=== PATIENT | female | born 1995 | race Caucasian/White ===

== ENCOUNTER → 2019-08-11 | Day surgery (SDC) | payer BC ==
[~2019-08-11] MED LIST: hydrALAZINE 20 MG/ML VIAL SLOW IVP PRN
[2019-08-11 05:08] VITALS: BP 116/73; TEMP 99; BMI 32.2
[2019-08-11 05:44] LABS: Amnisure Test No Membranes Rupture (No Rupture)
[2019-08-11 05:45] LABS: Amnisure Internal Control QC ACCEPTABLE (ACCEPTABLE)
[2019-08-11 05:58] LABS: Amphetamine Detected (NotDetected); Barbiturates Screen Not Detected (NotDetected); Benzodiazepine Screen Not Detected (NotDetected); Cocaine Metabolite Screen Not Detected (NotDetected); Medtox Control Line Valid? VALID (VALID); Medtox Reader # READER 4; Methadone Not Detected (NotDetected); Methamphetamine Detected (NotDetected); Opiate Screen Not Detected (NotDetected); Oxycodone Screen Not Detected (NotDetected); Phencyclidine (PCP) Not Detected (NotDetected); THC/Cannabinoid Screen Not Detected (NotDetected); Tricyclic Screen Not Detected (NotDetected)
--- NOTE | 2019-08-11 06:35 | PDOC.LDHP ---
Labor and Delivery H&P Chief complaint: contractions, loss of fluid HPI: 23 y/o at 35w0d presents with small amount of leaking around noon with consistent leaking throughout the day. She thought she "peed" herself. Also started having ctx q 10-15 minutes last night. Denies VB or decreased FM. Of note, also reportedly took her brother's Adderall today. ROS neg for HEENT, cv, pulm, gi, gu, neuro, psych, skin, musculoskeletal or consitutional symptoms other than mentioned above. OB Care: Dr. Ibanez OB History Details: 2 prior term SVDs 3 prior SABs Current complications: none Past Medical History: Denies Current medications: pre-aditya vitamins Previous surgical history: none Allergies/Adverse Reactions: Allergies Allergy/AdvReac Type Severity Reaction Status Date / Time No Known Allergies Allergy Verified 08/11/19 04:56 Social history: none - Physical Exam Vital signs reviewed and normal: yes General: NAD, resting Lungs: nonlabored breathing Abdomen: gravid Extremeties: no edema FHT: category 1 (140s, mod variability, + accels, no decels) [place] contractions every: occasional - Vaginal Exam cm dilated: 0 Effacement: 0% Station: -3 - Assessment 23 y/o at 35w0d with no e/o SROM or active labor. status reassuring with reactive NST. UDS + for meth and amphetamines. VP3 pending. - Plan -: D/c home with precautions. Advised to keep all appointments. Will call with VP3 results if treatment is needed.
== END ==
LOC: L&D/OP 04:26
PROVIDERS: ATTEND Obstetrics & Gynecology
DX: O99.89 Other specified diseases and conditions complicating pregnancy, childbirth and the puerperium (principal); N89.8 Other specified noninflammatory disorders of vagina; O47.03 False labor before 37 completed weeks of gestation, third trimester; Z3A.35 35 weeks gestation of pregnancy
CPT/HCPCS: 80306; 84112; 87480; 87510; 87660

== ENCOUNTER 2019-09-04 13:14 | Day surgery (SDC) | payer BC ==
[2019-09-04] MEDS ORDERED: hydrALAZINE 20 MG/ML VIAL SLOW IVP PRN (14:03)
[2019-09-04 14:29] VITALS: BMI 33.7
[2019-09-04] MEDS ORDERED: FLU VACC QS2019-20(6MOS UP)/PF 60 MCG/0.5 ML SYRINGE IM ONE (14:45)
--- NOTE | 2019-09-05 07:37 | PRG ---
DATE OF SERVICE: 09/04/2019 PRESENTING COMPLAINT: Contractions at 38 weeks gestation. HISTORY OF PRESENT ILLNESS: Ms. Bowers is a 23-year-old, G6, P2, AB3 with MARLI of 09/15, well known to myself, who presents complaining of contractions. She was seen in the office yesterday and noted to be 2, 70, -2. Group B strep was obtained at that time. The patient has been noncompliant in her visits from 34 to 38 weeks gestation. She denies rupture of membranes. Reports an active fetus. SOX ANALYST HISTORY: As noted. x2. Positive drug screen at early for methamphetamine. Blood type O positive, antibody negative, Pap negative. Rubella immune. VDRL nonreactive. Hepatitis B, GC, chlamydia negative. Group B strep pending. PAST MEDICAL HISTORY: Denies. PAST SURGICAL HISTORY: Denies. ALLERGIES: DENIES. MEDICATIONS: vitamins. SOCIAL HISTORY: Denies tobacco, alcohol, or current drug use. FAMILY HISTORY: Noncontributory. REVIEW OF SYSTEMS: Noncontributory. PHYSICAL EXAMINATION: VITAL SIGNS: White female. VITAL SIGNS: Temperature 98.8, respirations 18, blood pressure 118/72, pulse 85. HEENT: Within normal limits. LUNGS: Clear to auscultation bilaterally. HEART: Regular rhythm. ABDOMEN: Soft, nontender. No palpable contractions were noted. A category 1 heart rate tracing was noted over greater than 30 minutes. Positive accelerations, no decelerations. RN cervical exam was 2, 80, and -2, cephalic, bag of water intact and ballots with ease. IMPRESSION: [place] contractions. No evidence of active labor. PLAN: Discharge home. Keep scheduled followup. Induction of labor scheduled for 09/16. ER precautions. Job ID: [id number]
[2019-09-05] MEDS ORDERED: FLU VACC QS2019-20(6MOS UP)/PF 60 MCG/0.5 ML SYRINGE IM ONE (14:45)
== END 2019-09-04 16:05 | disposition home health service (06) ==
LOC: L&D/OP 13:14
PROVIDERS: ATTEND Obstetrics & Gynecology
DX: O47.1 False labor at or after 37 completed weeks of gestation (principal); Z3A.38 38 weeks gestation of pregnancy

== ENCOUNTER 2019-09-07 07:38 | Inpatient (IN) | payer BC ==
[2019-09-07] MEDS ORDERED: NS / Oxytocin 40 units/1000ml 1,000 ML IV PRN ×2 (08:30→09:30)
[2019-09-07] MEDS ORDERED: hydrALAZINE 20 MG/ML VIAL SLOW IVP PRN ×3 (08:30→13:22)
[2019-09-07] MEDS ORDERED: Lidocaine 1% (PF) 30 ML VIAL SC PRN (08:30)
--- NOTE | 2019-09-07 08:58 | PDOC.FPROB ---
FMR OB H&P: HPI - History of Present Illness Chief Complaint: contractions Indentification: History of Present Illness: 23 yo at 38.6 presenting with onset of CTX today. Reports some discharge. Denies VB. Endorsed FM. Was seen 3 days ago here with cervix at 2cm. Primary Care Physician: Dr. Ibanez FMR OB H&P: Current - Care : 4 Para: 2011 Gestational age: 38.6 Due date: 09/15/19 - OB Labs Blood type: unknown RH: unknown Antibody Screen: unknown HIV: unknown RPR: unknown HepBsAg: unknown Quad screen: unknown Urine drug screen: not done Gonorrhea: unknown Chlamydia: unknown GBS: negative FMR OB H&P: History - Past Medical History PMH: Reflux - OB History OB History: 1. two living children, 2. 1 AB - [employer] History [employer] History: Denies - Surgical History Sx History: Denies - Social History Social History: Denies TAD - Family History Family History: HTN, Cancer FMR OB H&P: Medications - Current Home Medications: Medication Instructions Recorded Confirmed Type Famotidine [Pepcid AC] 20 mg PO DAILY 08/11/19 09/04/19 History Vitamin 1 tablet PO DAILY 08/11/19 09/04/19 History Acetaminophen [Tylenol] 325 mg PO PRN PRN 09/04/19 09/04/19 History Allergies/Adverse Reactions: Allergies Allergy/AdvReac Type Severity Reaction Status Date / Time No Known Allergies Allergy Verified 09/04/19 14:06 FMR OB H&P: ROS - Review of Systems General: denies: fever/chills, weight/appetite/sleep changes, recent trauma Eyes: denies: vision changes, double vision ENT: denies: rhinorrhea, sinus pain/pressure, sore throat Cardiovascular: denies: chest pain Respiratory: denies: cough, congestion, shortness of breath Gastrointestinal: reports: indigestion, nausea. denies: abdominal pain, bloating, vomiting Genitourinary (Female): reports: vaginal discharge, contractions. denies: vaginal pain, vaginal bleeding, vaginal pressure Musculoskeletal: denies: pain, stiffness Neurologic: denies: seizures, headache Endocrine: denies: cold intolerance, heat intolerance Hematologic/Lymphatic: reports: prolonged or excessive bleeding Psychological: reports: anxiety. denies: depression FMR OB H&P: Vital Signs - Heart Tones Baseline: 150 Variability: moderate Acceleration: present Deceleration: absent Category: category 1 [place] contractions every: 2-4min FMR OB H&P: Physical Exam - Physical Exam General: NAD, awake, alert and oriented HEENT: normocephalic and atraumatic, EOMI, MMM, conjunctiva clear, no scleral icterus Neck: supple, trachea midline Heart: RRR, normal S1/S2, no murmurs/rubs/gallops, pulses present General: CTAB, no respiratory distress, good air movement, no wheezing, no retractions Abdomen: gravid, fundus(cm) Musculoskeletal: FROM in all four extremities Skin: no rash, capillary refill <2 seconds Lymphatic: no unusual bruising or bleeding, no petechia Psychiatric: intact recent and remote memory, good judgement and insight - Pelvic Exam SVE: 4/90/-1 Hennessy score: 7 FMR OB H&P: A/P - Problem List (1) in third trimester with history of Current Visit: Yes Status: Acute Code(s): O09.293 - SUPRVSN OF PREG W POOR REPRODCTV OR OBSTET HX, THIRD TRI Disposition: 23 yo at 38.6 weeks here for latent labor 1. sIUP -cephalic on sono -Cat I, CTX 2-4 min -Desires epidural -GBS negative -Admit for labor 2. Reflux Dispo: Proceed with labor management Discussion: Date/Time: 09/07/19 0856 This H&P was discussed with [] and [] who agree with the above documentation and plan.
[2019-09-07 09:14] VITALS: BMI 33.7
[2019-09-07] MEDS ORDERED: Promethazine HCl 25 MG/ML VIAL IM PRN (09:30)
[2019-09-07] MEDS ORDERED: Ondansetron PF 4 MG/2 ML Vial IVP PRN (09:30)
[2019-09-07 09:44] LABS: Hemoglobin 10.8 g/dL (12.0-16.0); Mean Corpuscular HGB CONC 32.7 g/dL (32.0-36.0); Mean Corpuscular Hemoglobin 26.7 pg (27.0-31.0); Mean Corpuscular Volume 81.8 fL (78.0-98.0); Mean Platelet Volume 10.3 fL (7.4-10.4); Platelet Count 190 thou/uL (130-400); RBC Distribution Width 14.1 % (11.5-14.5); Red Blood Cell (RBC) Count 4.04 mill/uL (4.20-5.40); White Blood Cell (WBC) Count 15.6 thou/uL (4.8-10.8)
[2019-09-07 10:12] LABS: HBSAg Index 0.14 S/CO (0-0.99); Hep B Surf Ag Non-Reactive S/CO (NonReactive); Syphilis Antibody Nonreactive (Nonreactive); Syphilis Antibody Index 0.04 S/CO (<1.00 Non-Reactive)
--- NOTE | 2019-09-07 10:23 | PDOC.OPDEL ---
OB Operative/Delivery Note Delivery Dr/Surgeon: Keiko Keller Pre-Delivery Diagnosis: active labor Procedure/Post Delivery Dx: spontaneous vaginal delivery Weeks gestation: 38 Anesthesia: none - Additional Findings/Plan Placenta delivered: spontaneous Repaired Obstetrical Laceration: none Compilations/Other Findings: Delivering Physician: Omar Keller MD Attending: Dr. Anna Aden MD Procedure: Spontaneous Vaginal Delivery Anesthesia:None EBL: 150cc Pre-op Diagnosis: 1. Onset of labor, latent labor Post-op Diagnosis: 1. Term intrauterine , delivered Indications: A 23y/o female presents to L&D for CTX Delivery Note: This is 23yo F @ 38 wks who delivered a viable F infant at 1002 on 09/07/19. Following a precipitous delivery at bedside, a vigorous male was delivered over an intact perineum in the occipitoanterior position. Anterior shoulder and then remainder of the body delivered. No nuchal cord. The head was held down and mouth and nares were bulb suctioned. Cord clamped after delayed cord clamping and cut and cord blood collected. Placenta delivered intact in the occiput anterior presentation with a 3 vessel cord noted. Fundal massage was performed and the fundus was firm. The cervix and vagina were free of lacerations. went to nursery in good condition for routine care. Apgars were 8/9 at 1 & 5 minutes, respectively. Patient tolerated delivery well and went to after routine recovery/care. Post delivery plan: routine recovery Addendum - Attending - Attending Attestation Date/Time: 09/07/19 1301 I was present for the entire delivery.
[2019-09-07 11:45] LABS: Amphetamine Not Detected (NotDetected); Barbiturates Screen Not Detected (NotDetected); Benzodiazepine Screen Not Detected (NotDetected); Cocaine Metabolite Screen Not Detected (NotDetected); Medtox Control Line Valid? VALID (VALID); Medtox Reader # READER 1; Methadone Not Detected (NotDetected); Methamphetamine Not Detected (NotDetected); Opiate Screen Not Detected (NotDetected); Oxycodone Screen Not Detected (NotDetected); Phencyclidine (PCP) Not Detected (NotDetected); THC/Cannabinoid Screen Not Detected (NotDetected); Tricyclic Screen Not Detected (NotDetected)
[2019-09-07] MEDS ORDERED: Acetaminophen 325 MG TAB PO SCH (12:57)
[2019-09-07] MEDS ORDERED: Adacel (T-DAP) 0.5 ML SYRINGE IM ONE (13:22)
[2019-09-07] MEDS ORDERED: Milk Of Magnesia 30 ML UDCUP PO PRN (13:22)
[2019-09-07] MEDS ORDERED: Bisacodyl 10 MG SUPP PR PRN (13:22)
[2019-09-07] MEDS ORDERED: NS / Oxytocin 40 units/1000ml 1,000 ML IV SCH (13:22)
[2019-09-07] MEDS: Ferrous Sulfate 325 MG TAB PO SCH (17:12)
[2019-09-07] MEDS: Ibuprofen 800 MG TAB PO PRN (22:50)
[2019-09-07] MEDS: Docusate Calcium (SURFAK) 240 MG CAP PO SCH (22:50)
[2019-09-08] MEDS: Ibuprofen 800 MG TAB PO PRN (07:16)
[2019-09-08] MEDS: Ferrous Sulfate 325 MG TAB PO SCH ×2 (07:32→07:33)
--- NOTE | 2019-09-08 07:36 | PDOC.PP ---
Post Progress Note Post Day #: 1 Subjective: Doing well, no complaints. PO intake tolerated: yes Ambulation: yes Vital Signs (12 hours) Temp Pulse Resp BP Pulse Ox 09/07/19 20:00 98.3 F 89 17 111/65 100 Weight Weight 173 lb - Physical Examination General: NAD Respiratory: non-labored breathing Abdominal: lochia (normal), no distention, appropriately TTP Fundus firm & at: below umbilicus Neurological: no gross focal deficits Psychiatric: A&Ox3, normal affect Result Diagrams: 09/07/19 09:00 Additional Labs: Post Labs Blood Type O POSITIVE 09/07/19 10:31 Hep Bs Antigen Non-Reactive S/CO (NonReactive) 09/07/19 09:00 (1) (spontaneous vaginal delivery) Code(s): O80 - ENCOUNTER FOR FULL-TERM UNCOMPLICATED DELIVERY Status: Acute (2) Precipitous delivery, delivered (current hospitalization) Code(s): O62.3 - PRECIPITATE LABOR Status: Acute - Assessment/Plan Patient doing well this morning. Would like to go home if baby is cleared for d /c. Order placed.
[2019-09-08 07:52] VITALS: BP 110/72; TEMP 98
[2019-09-08] MEDS: Docusate Calcium (SURFAK) 240 MG CAP PO SCH (08:19)
[2019-09-08] MEDS ORDERED: FLU VACC QS2019-20(6MOS UP)/PF 60 MCG/0.5 ML SYRINGE IM ONE (09:30)
== END 2019-09-08 12:50 | disposition home or self-care (01) | DRG 807 ==
LOC: L&D/OP 07:38 → L&D 08:44 → 3SE 13:32
PROVIDERS: ADMIT Obstetrics & Gynecology; ATTEND Obstetrics & Gynecology
PROC: 10E0XZZ Delivery of Products of Conception, External Approach (ICD-10-PCS; principal; 2019-09-07)
DX: O62.3 Precipitate labor (principal); Z37.0 Single live birth; K21.9 Gastro-esophageal reflux disease without esophagitis; O99.62 Diseases of the digestive system complicating childbirth; Z3A.38 38 weeks gestation of pregnancy
CPT/HCPCS: 36415; 80306; 85027; 86780; 86850; 86900; 86901; 87340; 99282